=== PATIENT | female | born 1955 | race Caucasian/White ===

== ENCOUNTER 2024-07-17 15:50 | Emergency (ER) | payer MEDICARE, MEDICAID ==
[~2024-07-17] VITALS: Ht 170.2 cm; Wt 88.2 kg
[2024-07-17 16:03] VITALS: BP 127/94; PULSE 97; RESP 16; TEMP 98; O2SAT 96
--- NOTE | 2024-07-17 16:59 | ELECTROCARDIOGRAPH REPORT ---
[facility] Test Date: 2024-07-17 Test Time: 16:56:22 Pat Name: BARON RAPHAEL Department: [facility]- Patient ID: [facility]-[id number] Room: Gender: F [employer]: PING : 1955 Requested By: ISMAEL MILLER Order Number: [id number] Reading MD: Dr. Nacho Talbot Measurements Intervals [place] Rate: 89 P: 66 [place]: 166 QRS: 64 QRSD: 65 T: 63 QT: 395 QTc: 481 Interpretive Statements Sinus rhythm Electronically Signed On 07-19-2024 6:35:[address] Nacho Talbot Please click the below link to view image of tracing.
[2024-07-17] MEDS: LIDOcaine 2% Viscous 15ml cup MM STA (17:16)
[2024-07-17] MEDS: mag hydrox/Alum hydrox/simeth 30ml oral suspension PO ONE (17:16)
--- NOTE | 2024-07-17 17:17 | Physician Documentation ---
History of Present Illness Chief Complaint: Abdominal Pain Stated Complaint: ABD PAIN Time Seen by MD: 16:31 HPI Patient is here because she drank a small amount of an alkaline solution that is supposed to improve your overall health. She was in a stressful situation in the car with her significant other in the car kept breaking down. She developed some epigastric pain vomiting. Medication Reconciliation Allergies: Coded Allergies: No Known Allergies (Unverified , 07/17/24) Physical Exam Vital Signs: Temperature: 98.0, Heart Rate: 97, Respiratory Rate: 16, BP: 127/94, Pulse Oximetry: 96, Weight: 88.180 Physical Exam General: Awake and Alert, no acute distress. HEENT: Conjunctiva pink, Sclera clear, Mucus Membranes moist. Neck: Supple without masses and tenderness. Resp: Unlabored. Lungs clear to auscultation bilaterally. Heart: Regular Rate and rhythm, normal S1 and S2 without murmur, rub or gallop. Abdomen: Soft and non tender no organomegaly Extremities: No cyanosis,clubbing or edema. Skin: Warm and Dry. Neuro: GCS 15; no focal deficits Progress Results/Orders Results/Orders Orders - ISMAEL MILLER MD CMP (07/17/24 16:45) Cbc/Diff (07/17/24 16:45) Lipase (07/17/24 16:45) Hs Troponin I W Calculations (07/17/24 16:45) Acetaminophen (07/17/24 16:45) Salicylate (07/17/24 16:45) Completed Orders - ISMAEL MILLER MD Electrocardiogram (07/17/24 ) Lidocaine 2% Viscous (Xylocaine 2% Visco (07/17/24 16:45) Mag & Alum Hydrox/Simeth Susp (Maalox Or (07/17/24 16:45) Vital Signs 07/17/24 16:03 Temp 98.0 Pulse 97 Resp 16 B/P (MAP) 127/94 Pulse Ox 96 Medical Decision Making Findings EKGs interpreted by me shows a sinus rhythm of 89 beats per minute axis intervals ST segments are normal. Patient is here because he drank a small amount of alkaline solution that is supposed to be beneficial for overall health she did not drink a toxic at [facility] poison control was consulted she was given a GI cocktail initially ordered basic labs and that has about two ordered fluids with the patient is asymptomatic now feels much better he requested to be discharged and I think this is reasonable even without labs so she was discharged. Departure Disposition: HOME / SELF CARE / HOMELESS Impression: Primary Impression: Ingestion of nontoxic substance Qualified Codes: T65.91XA - Toxic effect of unspecified substance, accidental (unintentional), initial encounter Condition: Improved Discharge Instructions: Abdominal Pain (Nonspecific) Referrals: NO PRIMARY CARE PROVIDER (PCP) Education Educated: Patient Educated regarding: diagnosis, treatment, prognosis, need for follow up Signature Scribe Signature: no scribe Attestation: no scribe ISMAEL MILLER MD Jul 17, 2024 17:17
== END 2024-07-17 18:25 | disposition home or self-care (01) ==
LOC: ER 15:50
DX: T65.91XA Toxic effect of unspecified substance, accidental (unintentional), initial encounter (principal); Y92.89 Other specified places as the place of occurrence of the external cause
CPT/HCPCS: 93005; 99283